=== PATIENT | female | born 1990 | race African-American/Black ===

== ENCOUNTER 2017-07-11 04:54 | Day surgery (SDC) | payer OTHER ==
[2017-07-09 09:29] VITALS: BMI 29.8
--- NOTE | 2017-07-11 08:14 | HP ---
Satellite [facility] - Chief Complaint Chief Complaint: left knee pain - Past Medical History Allergies/Adverse Reactions: Allergies Allergy/AdvReac Type Severity Reaction Status Date / Time No Known Allergies Allergy Verified 07/09/17 09:24 ...LMP: 06/04/17 - Current Medications Current Medications: Home Medications Medication Instructions Recorded Oxycodone HCl/Acetaminophen 1 - 2 tab PO Q6H #50 tab MDD 8 07/11/17 [Percocet 5-325 mg Tablet -] Satellite Physical Exam - Physical Examination General Appearance: Well Nourished, Well Developed, Alert & Oriented x3 ENT: Clear Lung: Normal air movement Heart: Regular rate & rhythm Extremities: Other (left knee- + swelling, + ttp, + pierre, + ant draw, + pivot , nvi MRI + acl rupture) Neurological: Intact, Alert, Oriented Satellite Impression/Plan - Impression/Plan Impression: left knee acl rupture Operative Procedure: left knee arthroscopy ACL reconstruction Date to be Performed: 07/11/17
[2017-07-11] MEDS ORDERED: oxyCODONE HCL 5 MG TABLET PO PRN ×2 (08:22)
[2017-07-11] MEDS ORDERED: ONDANSETRON 4 MG/2 ML VIAL IVPUSH PRN (08:22)
[2017-07-11] MEDS ORDERED: LACTATED RINGERS SOLUTION 1,000 ML IV SCH (08:30)
[2017-07-11] MEDS ORDERED: BUPIVACAINE HCL/PF 0.5% (5MG/ML) 10 ML VIAL ONE (09:52)
[2017-07-11] MEDS ORDERED: DEXAMETHASONE SOD PHOSPHATE/PF 10 MG/ML SDV ONE ×2 (09:52→09:58)
[2017-07-11] MEDS ORDERED: MIDAZOLAM HCL 2 MG/2 ML SINGLE DOSE VIAL ONE ×2 (09:53)
[2017-07-11] MEDS ORDERED: PROPOFOL 20 ML ONE (10:29)
[2017-07-11] MEDS ORDERED: DEXAMETHASONE SOD PHOSPHATE 4 MG/1 ML VIAL ONE (10:30)
[2017-07-11] MEDS ORDERED: LIDOCAINE HCL/PF 2% SDV 5ML VIAL ONE (10:30)
[2017-07-11] MEDS ORDERED: ceFAZolin SODIUM 1 GM VIAL IVPB ONE (11:07)
[2017-07-11] MEDS ORDERED: ceFAZolin SODIUM 1 GM VIAL ONE ×2 (11:11→14:26)
[2017-07-11] MEDS ORDERED: KETOROLAC TROMETHAMINE 30 MG/1 ML VIAL ONE (12:11)
[2017-07-11] MEDS ORDERED: CEFAZOLIN 1 GM in DEXTROSE 5%-WATER - 50 ML IVPB ONE (12:21)
--- NOTE | 2017-07-11 12:21 | OP ---
Operative Note - Note: Operative Date: 07/11/17 ([facility]) Pre-Operative Diagnosis: left knee acl rupture Operation: left knee arthroscopy with ACL reconstruction using graftlink allograft Implants: graftlink Post-Operative Diagnosis: Same as Pre-op Surgeon: Angel Friedman Mechanical Drawing Teacher: Shaka Carey Anesthesiologist/PROFILE SHAPER OPERATOR: Whitney Singh Anesthesia: General, Local Specimens Removed: shavings Estimated Blood Loss (mls): 5 Operative Report Dictated: Yes
[2017-07-11] MEDS ORDERED: oxyCODONE HCL 5 MG TABLET ONE (14:26)
--- NOTE | 2017-07-11 15:34 | SPEC ---
DATE OF OPERATION: 07/11/2017 PREOPERATIVE DIAGNOSIS: Left anterior cruciate ligament tear. POSTOPERATIVE DIAGNOSIS: Left anterior cruciate ligament tear. PROCEDURE: Left anterior cruciate ligament reconstruction with GraftLink. SURGICAL ATTENDING: Angel Friedman MD LOADER HELPER SORTING YARD: FILIBERTO Jacome ANESTHESIA: Regional and general. CLOSURE: An Arthrex GraftLink for graft and for fixation, 3-0 nylon for skin. ESTIMATED BLOOD LOSS: Negligible. COMPLICATIONS: None. CONDITION: To recovery room stable condition. DESCRIPTION OF OPERATIVE PROCEDURE: Patient taken to the operating room on July 11, 2017. Regional and general anesthesia was administered by the anesthesiologist. IV Kefzol was administered prophylactically prior to the case. The left lower extremity was prepped and draped in the usual sterile fashion. The superomedial and medial and lateral infrapatellar portal sites were made with a 15 blade followed by a blunt trocar. The outflow portal was superomedially. The scope portal was the inferolateral and the working portal was the inferomedial portal. The scope was placed in the inferolateral portal and up in the suprapatellar pouch. Pouch was visualized to be clean. The medial and lateral gutters were visualized to be clean. The undersurface of the patella and trochlea were visualized to be intact. With valgus stress on the knee, the medial compartment was entered and the medial meniscus was visualized, probed and found to be intact. The medial femoral condyle was run and found to be intact as was the medial tibial plateau. In the figure-4 position, the lateral compartment was entered. The lateral meniscus was visualized, probed, found to be intact. The lateral femoral condyle was run and found to be intact as was the lateral tibial plateau. At 90 degrees, the ACL was visualized and found to be completely torn and shredded with a stump anteriorly. This was debrided using the shaver. A notchplasty was then performed, again insufficient width and height of the notch to perform the procedure. The PCL was visualized to be intact. Using the [id number] guide and an inside-out reaming with a flip cutter, a 10-mm tunnel was made in the posterior aspect of the notch with a depth of approximately 25 mm, preserving the outer cortex. Through this tunnel was passed a shuttle suture made of an Arthrex FiberStick from outside in, exiting the portal. Next, using a tibial guide, a tibial tunnel was made just anterior to the PCL to a depth of about 30 mm inside the tibia, preserving the lateral cortex. This was done by an inside-out technique using a flip cutter as well. Through this tunnel as well was passed a FiberStick suture which was used as a shuttling suture exiting the portal as well. The GraftLink graft was prepared on the back table with a button in place and the appropriate markings on the graft. Two shuttle sutures were used to pull the graft into the knee through the inferomedial portal, 1 limb up in the femoral tunnel, 1 limb down the tibial tunnel. The femoral tunnel button was hooked on the lateral cortex. The knee was cycled. The graft was toggled up into a depth of at least 20 mm. With the knee in extension, the tibial graft was toggled using a button as well on the anteromedial cortex. At this time, the knee was cycled through, going from full extension to full flexion with excellent tension of the ACL throughout and good crossing of the PCL. Sutures were cut snug. The graft was ensured to not impede on any part of the notch and throughout the range of motion found to have good tension. The incisions were all closed with 3-0 nylon interrupted horizontal mattress sutures. A sterile pressure dressing and a knee immobilizer were applied. Patient awakened from anesthesia and transferred to recovery in stable condition. Brenden [id number]
[2017-07-11 16:05] VITALS: TEMP 98
[2017-07-11 17:59] VITALS: BP 120/70; PULSE 71
--- NOTE | 2017-07-15 15:10 | PATH ---
Surgical Pathology Report Patient Name: MICKEY WEBBER [facility]. Rec. #: [id number] /Age/Gender: 1990 (Age: 27) / F Account: [id number] Location: [facility] SURGICAL Taken: 07/11/2017 Received: 07/11/2017 Reported: 07/15/2017 Physicians: Angel Friedman M.D. Specimen(s) Received LEFT KNEE SHAVINGS Clinical History Tear left knee Final Diagnosis LEFT KNEE, SHAVINGS: SYNOVIAL TISSUE, BONE, AND FIBROCARTILAGINOUS TISSUE WITH DEGENERATIVE CHANGE. Electronically Signed Serena Elizalde M.D. Gross Description Received in formalin, labeled "left knee shavings," is a 5.5 x 4.5 x 0.5 cm. aggregate of joyce-yellow soft tissue fragments. A wholesale representative portion is submitted in one cassette. /07/11/2017 saudi07/11/2017
== END 2017-07-11 17:59 | disposition home or self-care (01) ==
LOC: JASU-SURG 04:54
PROVIDERS: ATTEND Orthopaedic Surgery
PROC: 0MQP4ZZ Repair Left Knee Bursa and Ligament, Percutaneous Endoscopic Approach (ICD-10-PCS; principal; 2017-07-11 11:00)
DX: S83.512A Sprain of anterior cruciate ligament of left knee, initial encounter (principal); X58.XXXA Exposure to other specified factors, initial encounter; Y93.9 Activity, unspecified; Y92.9 Unspecified place or not applicable; Y99.9 Unspecified external cause status
CPT/HCPCS: 84703; 88304-TC; 94760; 97116-GP

== ENCOUNTER 2017-11-26 09:49 | Emergency (ER) | payer OTHER ==
[2017-11-26 10:04] VITALS: BP 139/81; PULSE 74; TEMP 97.7; BMI 32.5
[2017-11-26] MEDS ORDERED: SODIUM CHLORIDE 1,000 ML IV ONE (11:18)
--- NOTE | 2017-11-26 11:42 | PDOC ---
History of Present Illness - General Chief Complaint: Migraine Headache Stated Complaint: DIZZINESS/15 WKS , HEADACHE Time Seen by Provider: 11/26/17 10:49 History Source: Patient Exam Limitations: No Limitations - History of Present Illness Initial Comments: 11/26/17 11:44 Patient came to emergency department for evaluation of onset of migraine headache. was awakened from sleep this morning at approximately 3 AM with her classic migraine pain. Is 15 weeks and therefore unable to take Excedrin which usually resolves her migraines. States this headache is similar to her previous migraines and not the worst headache of her life. Denies any associated symptoms including URI symptoms, or any neurologic changes. has some mild nausea but feels that typically with her . Has had an uncomplicated although has suffered with nausea frequently. Is using only Tylenol for headaches with minimal resolved. Timing/Duration: reports: 24 hours, unknown, waxing and waning Severity: Yes: moderate Associated Symptoms: reports: denies symptoms. denies: fever/chills, loss of consciousness, nausea/vomiting Past History - Travel Traveled outside of the country in the last 30 days: No Close contact w/someone who was outside of country & ill: No - Past Medical History Allergies/Adverse Reactions: Allergies Allergy/AdvReac Type Severity Reaction Status Date / Time shrimp Allergy Intermediate Verified 11/26/17 10:04 No Known Drug Allergies Allergy Verified 11/26/17 10:04 Home Medications: Ambulatory Orders NK [No Known Home Medication] 11/26/17 Anemia: No Asthma: No Cancer: No Cardiac Disorders: No CVA: No COPD: No CHF: No DVT: No Dementia: No Diabetes: No GI Disorders: No Disorders: No HTN: No Hypercholesterolemia: No Liver Disease: No Seizures: No Thyroid Disease: No - Suicide/Smoking/Psychosocial Hx Smoking History: Never smoked Information on smoking cessation initiated: No Hx Alcohol Use: No Drug/Substance Use Hx: No Substance Use Type: Alcohol Hx Substance Use Treatment: No Review of Systems - Review of Systems Able to Perform ROS?: Yes Is the patient limited Mohawk proficient: Yes Constitutional: Yes: Symptoms Reported, See HPI, Malaise HEENTM: Yes: See HPI. No: Symptoms Reported, Eye Pain, Blurred Vision, Nose Congestion Respiratory: Yes: See HPI. No: Symptoms reported, Cough Musculoskeletal: Yes: Symptoms Reported Integumentary: Yes: Symptoms Reported Neurological: Yes: Symptoms reported, See HPI, Headache. No: Numbness, Paresthesia, Seizure All Other Systems: Reviewed and Negative *Physical Exam - Vital Signs Last Vital Signs Temp Pulse Resp BP Pulse Ox 97.7 F 74 17 139/81 100 11/26/17 10:02 11/26/17 10:02 11/26/17 10:02 11/26/17 10:02 11/26/17 10:02 - Physical Exam General Appearance: Yes: Nourished, Appropriately Dressed, Apparent Distress, Mild Distress, Moderate Distress (photophobia) HEENT: positive: LISA, Normal ENT Inspection, TMs Normal (congested but clear landmarks), Pharynx Normal Neck: positive: Supple. negative: Tender, Lymphadenopathy (R), Lymphadenopathy (L) Respiratory/Chest: positive: Lungs Clear, Normal Breath Sounds Gastrointestinal/Abdominal: positive: Soft. negative: Tender, Guarding, Rebound Extremity: positive: Normal Capillary Refill, Normal Inspection Integumentary: positive: Normal Color, Dry, Warm, Pale Neurologic: positive: temperer II-XII NML intact, Fully Oriented, Alert, Normal Mood/ Affect, Normal Response, Motor Strength 5/5 Progress Note - Progress Note Progress Note: Migraine with Medical Decision Making - Medical Decision Making 11/26/17 12:[address] [facility] [address] Pérez- [phone] , discussed case with BEEF GRINDER who agrees with plan. Urinalysis completely normal, no protein or blood. Recommended neurology consult if second liter of IV fluid, Reglan, and Benadryl do not resolve pain. Patient updated plan 11/26/17 12:32 11/26/17 13:12 Patient much improved after second liter of IV fluid, Benadryl, and Reglan administration. States is ready for discharge. *DC/Admit/Observation/Transfer Diagnosis at time of Disposition: History of migraine during - Discharge Dispostion Disposition: HOME Condition at time of disposition: Stable Decision to Admit order: No - Referrals Referrals: Shahla Muir MD [Primary Care Provider] - - Patient Instructions Printed Discharge Instructions: DI for Migraine Additional Instructions: Rest, drink lots of fluids, Avoid strenuous activity or exercise until symptoms completely resolved Continue with Tylenol for pain relief Follow-up with BEEF GRINDER tomorrow or next day for reevaluation - Post Discharge Activity Forms/Work/School Notes: Back to Work
[2017-11-26 12:10] LABS: URINE APPEARANCE CLEAR; URINE BILIRUBIN NEGATIVE (<2.0 mg/dL); URINE COLOR COLORLESS; URINE GLUCOSE (UA) NEGATIVE (NEGATIVE); URINE KETONE NEGATIVE (NEGATIVE); URINE LEUK ESTERASE NEGATIVE (NEGATIVE); URINE NITRITE NEGATIVE (NEGATIVE); URINE PROTEIN NEGATIVE (NEGATIVE); URINE UROBILINOGEN NEGATIVE mg/dL (0.2-1.0)
[2017-11-26] MEDS ORDERED: METOCLOPRAMIDE HCL INJECTION 10 MG/2 ML VIAL IVPUSH ONE (12:11)
[2017-11-26] MEDS ORDERED: METOCLOPRAMIDE HCL INJECTION 10 MG/2 ML VIAL ONE (12:15)
[2017-11-26] MEDS ORDERED: diphenhydrAMINE HCL 25 MG CAPSULE (FP) PO ONE (12:16)
== END 2017-11-26 13:34 | disposition home or self-care (01) ==
LOC: JERFT 09:49
PROC: 3E033GC Introduction of Other Therapeutic Substance into Peripheral Vein, Percutaneous Approach (ICD-10-PCS; principal; 2017-11-26)
PROC: 3E0337Z Introduction of Electrolytic and Water Balance Substance into Peripheral Vein, Percutaneous Approach (ICD-10-PCS; 2017-11-26)
DX: O26.892 Other specified pregnancy related conditions, second trimester (principal); Z3A.15 15 weeks gestation of pregnancy; G43.809 Other migraine, not intractable, without status migrainosus
CPT/HCPCS: 81003; 99281-25; J7030